=== PATIENT | female | born 1970 | race Caucasian/White ===

== ENCOUNTER → 2018-01-08 | Outpatient (CLI) | payer OTHER ==
[2014-11-08 13:45] VITALS: BP 131/81
[~2018-01-08] MED LIST: TRAZ50TA15 PO; dayquil; nyquil; trazadone
--- NOTE | 2018-01-08 16:06 | RAD ---
Pelvic ultrasound, 01/08/2018: History: Left lower quadrant pain. Transabdominal and transvaginal scans were obtained. The uterus measures 11 x 7 x 5.4 cm. There is considerable thickening of the central uterine echo complex which measures 3 cm in greatest AP dimension. The material in the central uterine cavity is heterogeneous, including a tiny ill-defined 5 mm hypoechoic or cystic components. This does not have the appearance of a gestational sac. Color flow is seen within this endometrial process. A 1.8 cm nabothian cyst is present in the cervical region. The right ovary is unremarkable. There is a 2.3 cm simple cyst in the left ovary. The adnexal regions are otherwise unremarkable. No free fluid is evident in the pelvis. IMPRESSION: 1. Moderate heterogeneous thickening of the central uterine echo complex with diagnostic considerations including endometrial hyperplasia, an endometrial polyp or endometrial malignancy. 2. Small left ovarian cyst.
== END | disposition home or self-care (01) ==
LOC: US 14:39
PROVIDERS: ATTEND Family Medicine
DX: N83.202 Unspecified ovarian cyst, left side (principal); N85.00 Endometrial hyperplasia, unspecified; N92.6 Irregular menstruation, unspecified
CPT/HCPCS: 76830; 76856